=== PATIENT | female | born 1980 | race Caucasian/White ===

== ENCOUNTER → 2017-08-22 | Day surgery (SDC) | payer OTHER ==
[~2017-08-22] VITALS: Ht 170.1 cm; Wt 72.6 kg
[~2017-08-22] MED LIST: AMOXICILLIN500 M3 PO; SYNTHROID25 MCG PO
--- NOTE | ~2017-08-22 | O ---
[place], [place] OPERATIVE NOTE NAME: EVELIO LEES UNIT #: [id number] ROOM: DOCTOR: ABDULLAHI MEADOWS MD BIRTHDATE: [birth year] DOS: GASTROENDOSCOPIC REPORT A 37-year-old patient who has presented with chief complaint of epigastric distress. Dyspepsia has been started on omeprazole. Omeprazole has been somewhat helping. ALLERGIES: SULFA. FAMILY HISTORY: Liver CA in uncle and grandmom. PAST SURGICAL HISTORY: Cervical level relation. PAST MEDICAL HISTORY: Hypothyroidism. Suspected IBS. PROCEDURE: Today's procedure part of investigation is panendoscopy plus biopsy. PREMEDICATION: Versed and Diprivan. SCOPE: Olympus forward-viewing gastroscope Q10 video. REPORT: After putting the patient in the left lateral position and after application of lubricant to the scope, the scope was introduced. Thereafter, under direct visualization, I advanced through the length of the esophagus without difficulty. Esophagus cervicothoracic distally carefully examined. Gastric pouch was entered. Gastritis seen. Gastritis secondary to bile reflux was identified. Duodenal bulb, second and third part within normal. Air patient was suctioned out and extubated, tolerated procedure well. IMPRESSION: Gastritis, status post biopsies and bile reflux. PLAN AND DISCUSSION: The patient is already on omeprazole 20 mg 1 daily. We will continue with the above antireflux measures with elevation of the head of the bed 10 inches all the time. Abstinence from solid food ingestion 4 hours prior to bedtime and clinical reassessment. Thank you very much indeed. [place], [place] OPERATIVE NOTE NAME: EVELIO LEES UNIT #: [id number] ROOM: DOCTOR: ABDULLAHI MEADOWS MD BIRTHDATE: [birth year] ABDULLAHI MEADOWS MD CM:OPRECORD:OPERATIVE NOTE [id number] ABDULLAHI MEADOWS MD 08/22/17 1047 interface
[2017-08-22 10:08] VITALS: BP 105/64
[2017-08-22 10:15] VITALS: BP 116/71
[2017-08-22 10:29] VITALS: BP 117/65
== END | disposition home or self-care (01) ==
LOC: SDC 08-20 08:45
DX: K29.50 Unspecified chronic gastritis without bleeding (principal); K21.0 Gastro-esophageal reflux disease with esophagitis; Z80.8 Family history of malignant neoplasm of other organs or systems; E03.9 Hypothyroidism, unspecified; Z88.2 Allergy status to sulfonamides

== ENCOUNTER → 2017-12-26 | Day surgery (SDC) | payer OTHER ==
[~2017-12-26] VITALS: Ht 170.1 cm; Wt 72.6 kg
[~2017-12-26] MED LIST changes: +HYOSCYAMINE0.125 M1 PO
--- NOTE | ~2017-12-26 | O ---
[place], [place] OPERATIVE NOTE NAME: EVELIO LEES UNIT #: [id number] ROOM: DOCTOR: ABDULLAHI MEADOWS MD BIRTHDATE: [birth year] DOS: 12/26/2017 GASTROENDOSCOPIC REPORT HISTORY OF PRESENT ILLNESS: A 37-year-old patient who has presented with chief complaint of change in bowel habit, constipation, diarrhea, and mucousy stool. ALLERGIES: SULFA. FAMILY HISTORY: Liver CA in grandmother and uncle. PAST SURGICAL HISTORY: Ablation therapy. PAST MEDICAL HISTORY: Hypothyroidism, gastritis, on omeprazole 20 mg daily. SOCIAL HISTORY: Nonsmoker, nonalcohol consumer. PROCEDURE: Today's procedure part of investigation is colonoscopy plus polypectomy x 2. PREMEDICATION: Versed and Diprivan. SCOPE: Olympus forward-viewing colonoscope 10L video. REPORT: After putting the patient in left lateral position and application of lubricant to the scope, scope was introduced. Thereafter, under direct visualization, advanced through the length of colon without difficulty. Base of the cecum explored, appendiceal orifice identified, and ileocecal valve defined, polypoid lesion with sessile in character in cecum with snare was removed x 2 polyps. Scope was gradually withdrawn from ascending, transverse, descending colon. Descending colon biopsies randomly was obtained, ruling out collagenous colitis, otherwise mucosa and vascularity intact. No pathology otherwise noticed. The patient extubated, tolerated procedure well. IMPRESSION: Colonoscopy with 2 snare polypectomy from cecum, status post biopsy ruling out collagenous colitis. IMPRESSION AND PLAN: This patient most likely is suffering from irritable bowel syndrome. PLAN AND DISCUSSION: I am going to start the patient on hyoscyamine 0.125 mg daily. High fiber was advised. The patient is recommended to have another colonoscopy organized in 5 years and clinical reevaluation as outpatient in GI clinic in 2 weeks. Otherwise, routine followup with you in office. I thank you very much indeed for your kind referral. [place], [place] OPERATIVE NOTE NAME: EVELIO LEES UNIT #: [id number] ROOM: DOCTOR: ABDULLAHI MEADOWS MD BIRTHDATE: [birth year] ABDULLAHI MEADOWS MD CM:OPRECORD:OPERATIVE NOTE [id number] ABDULLAHI MEADOWS MD 12/26/17 1311 interface
[2017-12-26 09:40] VITALS: BP 119/69
[2017-12-26 11:28] VITALS: BP 96/55
[2017-12-26 11:41] VITALS: BP 101/62
[2017-12-26 11:51] VITALS: BP 114/58
== END ==
LOC: SDC 12-23 10:15
DX: D12.0 Benign neoplasm of cecum (principal); Z88.2 Allergy status to sulfonamides; Z80.8 Family history of malignant neoplasm of other organs or systems; E03.9 Hypothyroidism, unspecified; Z98.890 Other specified postprocedural states